=== PATIENT | female | born 1965 ===

== ENCOUNTER 2023-01-27 06:17 | Day surgery (SDC) | payer OTHER ==
[~2023-01-27 06:17] MED LIST: ALTACE2.5 MG PO; LIPITOR40 MG PO; METFORMIN HCL500 M3 PO
[2023-01-27] MEDS ORDERED: IBU600 MG PO (11:10)
== END 2023-01-27 16:40 | disposition home or self-care (01) ==
LOC: CIR.AMB 06:17
PROVIDERS: ATTEND Obstetrics & Gynecology Gynecology
DX: N84.0 Polyp of corpus uteri (principal); Z20.822 Contact with and (suspected) exposure to COVID-19